=== PATIENT | male | born 1940 | race Caucasian/White ===

== ENCOUNTER 2019-02-16 18:43 | Observation (INO) ==
--- NOTE | 2019-02-16 18:57 | Emergency Department Note ---
Disposition Clinical Impression: Symptomatic bradycardia Disposition: Admitted As Inpatient Condition: Fair Forms: ED Satisfaction Letter Time of Disposition: 21:33 Arrhythmia/Palpitations HPI - General Chief Complaint: ED Arrhythmia/Palpitations Stated Complaint: BRADYCARDIA AT HOME Time Seen by Provider: 02/16/19 18:53 Source: patient Mode of arrival: ambulatory Limitations: no limitations Nursing Notes Reviewed: Yes Vital Signs Reviewed: Yes - History of Present Illness HPI Narrative: Patient was not feeling well family checked his pulse was found to be slow he is typically has a faster heart rate the [facility] family tells me that this occurs every couple months and then they make a little bit of medication changes he states his had no chest pain no chest pressure no palpitations no cough no cold or flulike symptoms no diarrhea melena hematochezia hematemesis he denies anything makes it better or anything makes it worse patient states they just has no energy know if he says when he tries not distended he denies any radiation neck and jaw or any diaphoresis all systems have been reviewed and are otherwise negative Onset (ago): Just [employer] TE[employer] Duration: intermittent Context: occurred during rest Associated symptoms: Denies: chest pain, shortness of breath, syncope, near- syncope, nausea, vomiting, anxiety, diaphoresis, cough, paresthesias, muscle cramps - Related Data Home Medications Medication Instructions Recorded Confirmed Atorvastatin [Lipitor] 40 mg PO HS 01/20/16 02/16/19 Finasteride [Proscar] 5 mg PO DAILY 01/17/17 02/16/19 Metoprolol [Lopressor] 50 mg PO BID 01/17/17 02/16/19 Oxygen 2 l NS AD 01/17/17 02/16/19 Donepezil HCl [Aricept] 5 mg PO HS 04/15/17 02/16/19 Apixaban [Eliquis] 5 mg PO BID 10/07/17 02/16/19 Furosemide [Lasix] 40 mg PO DAILY 10/07/17 02/16/19 BuPROPion XL (24 HR) [Wellbutrin 150 mg PO DAILY 10/03/18 02/16/19 Xl] Clopidogrel [Plavix] 75 mg PO DAILY 10/03/18 02/16/19 Ezetimibe [Zetia] 10 mg PO DAILY 10/03/18 02/16/19 Lisinopril [Zestril] 10 mg PO BID 10/03/18 02/16/19 Nitroglycerin [Nitrostat] 0.4 mg SL DAILY PRN 10/03/18 02/16/19 Omeprazole [PriLOSEC] 20 mg PO DAILY 10/03/18 02/16/19 Tamsulosin HCl [Flomax] 0.4 mg PO DAILY 10/03/18 02/16/19 Furosemide [Lasix] 20 mg PO QPM 10/05/18 02/16/19 Digoxin [Lanoxin] 0.125 mg PO DAILY 02/16/19 02/16/19 metFORMIN [Glucophage] 1,000 mg PO 0800 02/16/19 02/16/19 Previous Rx's Medication Instructions Recorded Diltiazem CD (24hr) [Cardizem CD] 240 mg PO DAILY 30 Days cap.er.24h 02/02/17 Allergies Allergy/AdvReac Type Severity Reaction Status Date / Time No Known Allergies Allergy Verified 10/01/18 08:47 All systems ED: reviewed and negative except as stated. Review of Systems: As Per HPI Constitutional: Denies: fever, chills Eyes: Denies: eye pain, eye discharge ENT ED: Denies: ear pain Cardiovascular: Reports: other (Slow heart rate). Denies: chest pain, palpi tations Respiratory: Denies: cough, dyspnea Gastrointestinal: Denies: abdominal pain, nausea Genitourinary: Denies: urgency, dysuria Musculoskeletal: Denies: back pain, neck pain Integumentary: Denies: rash, abrasion Neurological: Denies: headache Psychiatric: Denies: anxiety, depression Endocrine: Denies: fatigue Hematological/Lymphatic: Denies: easy bleeding Allergic/Immunologic: Denies: facial swelling Past Medical History - Past Medical History Attestation: Yes The following information was validated with the patient. Source: patient, old records reviewed, nursing notes reviewed Medical history: Reports: asthma, atrial fibrillation, CHF, COPD, coronary artery disease, CVA, dementia, diabetes, GERD, hyperlipidemia, hypertension, myocardial infarction, TIA, other Surgical history: Reports: angioplasty/stent, LE stent(s) Psychiatric history: Reports: no psych history - Social History Smoking Status: Current every day smoker Smokeless Tobacco Status: No Alcohol use: Reports: none Drug use: Reports: none Physical Exam - General Limitations: no limitations General appearance: alert, in no apparent distress - Head Head exam: atraumatic, normocephalic, normal inspection - Eye Eye exam: Present: normal appearance, PERRL, EOMI - ENT ENT exam: normal exam, normal oropharynx, mucous membranes moist - Expanded ENT Exam External ear exam: Present: normal external inspection Mouth exam: Present: normal external inspection Teeth exam: Present: normal inspection Throat exam: Present: normal inspection - Neck Neck exam: Present: normal inspection, full ROM, trachea midline - Chest Chest inspection: Present: normal inspection, symmetric chest wall rise - Respiratory Respiratory exam: Present: normal lung sounds bilaterally - Cardiovascular Cardiovascular exam: Present: regular rate, normal rhythm, normal heart sounds - Abdominal Exam Abdominal exam: Present: soft, Non-Tender, normal bowel sounds. Absent: tenderness, distention, guarding, rebound, rigidity, mass, pulsatile mass - Extremities Exam Extremities exam: Present: normal inspection, full ROM. Absent: tenderness, pedal edema - Expanded Upper Extremity Exam Shoulder exam: Present: normal inspection, full ROM Arm exam: Present: normal inspection, full ROM Elbow exam: Present: normal inspection, full ROM Forearm/Wrist exam: Present: normal inspection, full ROM Hand exam: Present: normal inspection, full ROM Neurosensory exam: Normal: radial nerve Vascular exam: Normal: capillary refill, radial pulse - Expanded Lower Extremity Exam Hip/Pelvis exam: Present: normal inspection, full ROM Upper leg exam: Present: normal inspection, full ROM Knee exam: Present: normal inspection, full ROM Lower leg exam: Present: normal inspection, full ROM Ankle exam: Present: normal inspection, full ROM Foot/toe exam: Present: normal inspection, full ROM Neurovascular/Tendon exam: Present: normal capillary refill, normal fine/light touch. Absent: motor deficit, sensory deficit, tendon deficit Gait: observed and normal - Back Exam Back exam: Present: normal inspection, full ROM. Absent: tenderness - Neurological Exam Neurological exam: Present: alert, oriented X3 - Expanded Neurological Exam Patient oriented to: Present: person, place, time Coma Scale Eye Opening: Spontaneous Coma Scale Motor Response: Obeys Commands Coma Scale Verbal Response: Oriented Coma Scale Total: 15 - Psychiatric Psychiatric exam: Present: normal affect, normal mood - Skin Skin exam: Present: warm, dry, intact, normal color Course Course Narrative: Patient was seen and evaluated patient continued to remain bradycardic while he was here in the emergency room but his blood pressure was holding 164/75 patient though just did not feel well he denied having any chest pain or chest pressure as result we will admitting old his lisinopril and his metoprolol and see if that will resolve the slow heart rate patient is agreeable family was agreeable transferred to the floor all labs have been reviewed and showing no evidence at this time of any acute ST segment elevation or ischemic or injury pattern or any elevation of the troponin we will continue to monitor Vital Signs Temperature 98.5 F 02/16/19 18:50 Pulse Rate 46 02/16/19 18:50 Respiratory Rate 21 02/16/19 18:50 Blood Pressure 163/67 02/16/19 18:50 O2 Sat by Pulse Oximetry 97 02/16/19 18:50 Temperature 98.5 F 02/16/19 18:50 Pulse Rate 48 02/16/19 19:45 Respiratory Rate 17 02/16/19 19:45 Blood Pressure 150/71 02/16/19 19:45 O2 Sat by Pulse Oximetry 95 02/16/19 19:45 Oxygen Delivery Oxygen Delivery Room Air Arrhythmia/Palpitations - MDM Narrative Medical decision making narrative: Slow heart rate Sick sinus syndrome - Differential Diagnosis Differential Diagnosis: Likely: palpitations - Medical Records Medical records reviewed: Yes I reviewed the patient's medical records. - Lab Data Lab results reviewed: Yes I reviewed the patient's lab results. Result diagrams: 02/16/19 19:10 02/16/19 19:10 Lab Results 02/16/19 02/16/19 02/16/19 Range/Units 19:10 19:10 19:10 WBC 11.6 H (4.3-11.1) K/mcL RBC 5.60 H (4.19-5.50) M/mcL Hgb 14.5 (12.9-16.9) g/dL Hct 45.1 (37.5-50.1) % MCV 80.5 L (83.0-100.0) fL MCH 25.9 L (28.0-33.3) pg MCHC 32.2 (31.6-35.5) g/dL RDW 16.3 H (11.5-14.5) % Plt Count 267 (140-400) K/mcL MPV 10.3 (9.4-12.4) fL Immature Gran % 0.4 (0-4) % Seg Neutrophils % 65.5 % Lymphocytes % 25.1 % Monocytes % 8.0 % Eosinophils % 0.8 % Basophils % 0.2 % Neutrophils # 7.6 (1.6-8.9) K/mcL Lymphocytes # 2.9 (0.6-4.6) K/mcL Monocytes # 0.9 (0.0-1.3) K/mcL Eosinophils # 0.1 (0.0-0.6) K/mcL Basophils # 0.0 (0.0-0.2) K/mcL PT 12.1 (9.4-12.1) Seconds INR 1.1 APTT 36.9 H (26.0-36.0) Seconds Sodium 138 (136-145) mEq/L Potassium 4.1 (3.5-5.1) mEq/L Chloride 103 (98-107) mEq/L Carbon Dioxide 27 (23-29) mEq/L BUN 14 (8-23) mg/dL Creatinine 1.73 H (0.70-1.30) mg/dL Est GFR ( Amer) 47 L (> 60) Est GFR (Non-Af Amer) 38 L (> 60) BUN/Creatinine Ratio 8 (6-26) Glucose 234 H (70-105) mg/dL Calculated Osmolality 294 (280-300) Calcium 8.8 (8.6-10.3) mg/dL Total Bilirubin 0.7 (0.3-1.0) mg/dL AST 12 L (13-39) Units/L ALT 16 (7-52) Units/L Alkaline Phosphatase 99 (34-104) Units/L Troponin I < 0.03 (< 0.04) ng/mL B-Natriuretic Peptide (Less than 100) pg/mL Serum Total Protein 6.0 L (6.4-8.9) g/dL Albumin 3.9 (3.5-5.7) g/dL Globulin 2.1 L (2.4-3.5) g/dL Albumin/Globulin Ratio 1.9 (1.1-2.2) TSH 2.819 (0.340-5.600) mcIU/mL Digoxin (0.8-2.0) ng/mL 02/16/19 02/16/19 Range/Units 19:10 19:10 WBC (4.3-11.1) K/mcL RBC (4.19-5.50) M/mcL Hgb (12.9-16.9) g/dL Hct (37.5-50.1) % MCV (83.0-100.0) fL MCH (28.0-33.3) pg MCHC (31.6-35.5) g/dL RDW (11.5-14.5) % Plt Count (140-400) K/mcL MPV (9.4-12.4) fL Immature Gran % (0-4) % Seg Neutrophils % % Lymphocytes % % Monocytes % % Eosinophils % % Basophils % % Neutrophils # (1.6-8.9) K/mcL Lymphocytes # (0.6-4.6) K/mcL Monocytes # (0.0-1.3) K/mcL Eosinophils # (0.0-0.6) K/mcL Basophils # (0.0-0.2) K/mcL PT (9.4-12.1) Seconds INR APTT (26.0-36.0) Seconds Sodium (136-145) mEq/L Potassium (3.5-5.1) mEq/L Chloride (98-107) mEq/L Carbon Dioxide (23-29) mEq/L BUN (8-23) mg/dL Creatinine (0.70-1.30) mg/dL Est GFR ( Amer) (> 60) Est GFR (Non-Af Amer) (> 60) BUN/Creatinine Ratio (6-26) Glucose (70-105) mg/dL Calculated Osmolality (280-300) Calcium (8.6-10.3) mg/dL Total Bilirubin (0.3-1.0) mg/dL AST (13-39) Units/L ALT (7-52) Units/L Alkaline Phosphatase (34-104) Units/L Troponin I (< 0.04) ng/mL B-Natriuretic Peptide 256 H (Less than 100) pg/mL Serum Total Protein (6.4-8.9) g/dL Albumin (3.5-5.7) g/dL Globulin (2.4-3.5) g/dL Albumin/Globulin Ratio (1.1-2.2) TSH (0.340-5.600) mcIU/mL Digoxin 2.0 (0.8-2.0) ng/mL - Radiology Data Radiology results reviewed: Yes I reviewed the patient's radiology results. ITS Impressions Chest X-Ray 02/16/19 18:53 IMPRESSION: No acute process. D/ / Castro Lovell MD / Castro Lovell MD Interpreting Provider: Castro Lovell MD - EKG Data EKG attestation: Yes I reviewed and interpreted this EKG. EKG results narrative: EKG shows sinus bradycardia prolonged HI with rate of 45 with a HI 238 QRS of 82 with a QT of 450 and an axis of 62 Critical Care Time Critical Care Time: No
[2019-02-16 19:28] LABS: Basophils % 0.2 %; Eosinophils # 0.1 K/mcL (0.0-0.6); Eosinophils % 0.8 %; Hematocrit 45.1 % (37.5-50.1); Hemoglobin 14.5 g/dL (12.9-16.9); Immature Granulocytes % 0.4 % (0-4); Lymphocytes # 2.9 K/mcL (0.6-4.6); Lymphocytes % 25.1 %; Mean Corpuscular HGB Conc 32.2 g/dL (31.6-35.5); Mean Corpuscular Hemoglobin 25.9 pg (28.0-33.3); Mean Corpuscular Volume 80.5 fL (83.0-100.0); Mean Platelet Volume 10.3 fL (9.4-12.4); Monocytes # 0.9 K/mcL (0.0-1.3); Neutrophils # 7.6 K/mcL (1.6-8.9); Platelet Count 267 K/mcL (140-400); Red Cell Distribution Width 16.3 % (11.5-14.5); Segmented Neutrophils % 65.5 %
[2019-02-16 19:36] LABS: INR 1.1; Prothrombin Time 12.1 Seconds (9.4-12.1)
[2019-02-16 19:39] LABS: Activated Partial Thrombo Time 36.9 Seconds (26.0-36.0)
[2019-02-16 19:44] LABS: Alanine Aminotransferase 16 Units/L (7-52); Albumin 3.9 g/dL (3.5-5.7); Albumin/Globulin Ratio 1.9 (1.1-2.2); Alkaline Phosphatase 99 Units/L (34-104); Aspartate Amino Transferase 12 Units/L (13-39); BUN/Creatinine Ratio 8 (6-26); Bilirubin,Total 0.7 mg/dL (0.3-1.0); Blood Urea Nitrogen 14 mg/dL (8-23); Calcium 8.8 mg/dL (8.6-10.3); Carbon Dioxide 27 mEq/L (23-29); Chloride 103 mEq/L (98-107); Globulin 2.1 g/dL (2.4-3.5); Glucose 234 mg/dL (70-105); Osmolality,Calculated 294 (280-300); Potassium 4.1 mEq/L (3.5-5.1); Sodium 138 mEq/L (136-145); eGFR For Non-African Americans 38 (> 60)
[2019-02-16 19:47] LABS: Troponin I < 0.03 ng/mL (< 0.04)
[2019-02-16 20:01] LABS: Thyroid Stimulating Hormone 2.819 mcIU/mL (0.340-5.600)
[2019-02-16] MEDS ORDERED: D5% in Water 1,000 ML IVC PRN (22:05)
[2019-02-16] MEDS ORDERED: NON-FORMULARY MEDICATION 1 EACH EACH (Oxygen [Oxygen] 2 L) NS SCH (22:05)
[2019-02-16] MEDS ORDERED: Naloxone 0.4 MG/ML INJ IVP PRN (22:05)
[2019-02-16] MEDS ORDERED: *HR* Dextrose 50 % in Water (Vial) 50 ML VIAL IVP PRN (22:05)
[2019-02-16] MEDS ORDERED: Dextrose Gel 15 GM/37.5 ML TUBE PO PRN ×2 (22:05)
[2019-02-16] MEDS: Nicotine 21 MG PATCH.TD24 TD SCH (23:11)
[2019-02-17 07:26] LABS: BUN/Creatinine Ratio 11 (6-26); Blood Urea Nitrogen 14 mg/dL (8-23); Calcium 8.5 mg/dL (8.6-10.3); Carbon Dioxide 27 mEq/L (23-29); Chloride 105 mEq/L (98-107); Glucose 233 mg/dL (70-105); Osmolality,Calculated 294 (280-300); Potassium 3.9 mEq/L (3.5-5.1); Sodium 138 mEq/L (136-145); eGFR For Non-African Americans 53 (> 60)
[2019-02-17] MEDS ORDERED: *HR* Metformin 500 MG TABLET PO SCH (08:00)
[2019-02-17] MEDS: Insulin LISPRO 300 UNITS/3 ML VIAL SQ SCH ×2 (08:04→11:44)
[2019-02-17] MEDS: Nicotine 21 MG PATCH.TD24 TD SCH (08:11)
[2019-02-17] MEDS ORDERED: ZETIA 10MG PO SCH (09:00)
[2019-02-17] MEDS ORDERED: Apixaban 5 MG TABLET PO SCH (09:00)
[2019-02-17] MEDS ORDERED: Diltiazem CD (24hr) 240 MG CAPSULE PO SCH (09:00)
[2019-02-17] MEDS ORDERED: BuPROPion XL (24 HR) 150 MG TABLET PO SCH (09:00)
[2019-02-17] MEDS ORDERED: Finasteride 5 MG TABLET PO SCH (09:00)
[2019-02-17] MEDS ORDERED: Furosemide 40 MG TABLET PO SCH (09:00)
[2019-02-17] MEDS ORDERED: *HR* Digoxin 0.125 MG TABLET PO SCH (09:00)
[2019-02-17 10:37] VITALS: BP 139/63
--- NOTE | 2019-02-17 12:47 | Internal Med History&Physical ---
Date of Encounter: 02/17/19 Time of Encounter: 12:20 Assessment and Plan (1) Symptomatic bradycardia Current visit: Yes Status: Acute He has been admitted to [facility]. Beta eder will be held. Internal Medicine - H&P: HPI Chief complaint: Bradycardia Admitted From: Emergency Dept Plans for Post Hospital Care: Home History of present illness: Mr. Hercules is a 78 year old male who came to emergency room stating he felt weak at home. His daughter checked heart rate and found it to be approximately 35/m. Patient was brought to emergency room and admitted to [facility] for ongoing care needs. He is on metoprolol 50 mg twice a day for history of hypertension and atrial fibrillation. Cardiovascular history is pertinent otherwise for known ASHD. He states he had an [place] in the past but does not recall the date. He has had multiple cardiac stents placed with the most recent ones approximately 2005. He does not recall the date of his last heart cath. He denies DVT or pulmonary embolus. He had an echocardiogram 08/04/2018 which showed LVEF of 60-65%. The interventricular septum and posterior wall thickness measurements were elevated at 1.30 cm each. E/A ratio was 1.1. There was reported mild sclerotic aortic valve leaflets. No evidence of pulmonary hypertension was seen. He had Regadenoson nuclear stress 01/24/2016 which showed no evidence of ischemia or infarct. The LVEF was 66%. He states he feels back to his baseline now and wishes to be discharged home. Past Med Surg Social Fam HX - Past Medical History Medical history: asthma, atrial fibrillation, CHF, COPD, coronary artery disease, CVA, dementia, diabetes, GERD, hyperlipidemia, hypertension, myocardial infarction, TIA, other Additional medical history: BPH,low back pain secondary to degenerative disc disease,history of stroke with left sided weakness,adenomatous colon polyps,depression,obesity,tachycardia Psychiatric history: no psych history - Past Surgical History Surgical History: angioplasty/stent, knee replacement, LE stent(s), orthopedic, other Additional surgical history: cardiac stenting,right leg broken-steel luke inserted,heart cath,right total knee replacement,right knee arthroscopy removal of adhesions - Social History Smoking Status: Current every day smoker Packs per day: 0.75 Smokeless Tobacco Status: No Alcohol use: none Drug use: none - Family History Sister Living Status: Hx Family Cancer: Yes Hx Family Neurologic Disorders: Yes Father Living Status: Hx Family Cardiac Disorders: Yes ([place]) Hx Family Cancer: Yes (prostate/stomach) Internal Medicine - H&P: Meds Atorvastatin [Lipitor] 40 mg PO HS 01/20/16 [History] Finasteride [Proscar] 5 mg PO DAILY 01/17/17 [History] Metoprolol [Lopressor] 50 mg PO BID 01/17/17 [History] Oxygen 2 l NS AD 01/17/17 [History] Diltiazem CD (24hr) [Cardizem CD] 240 mg PO DAILY 30 Days cap.er.24h 02/02/17 [Rx] Donepezil HCl [Aricept] 5 mg PO HS 04/15/17 [History] Apixaban [Eliquis] 5 mg PO BID 10/07/17 [History] Furosemide [Lasix] 40 mg PO DAILY 10/07/17 [History] BuPROPion XL (24 HR) [Wellbutrin Xl] 150 mg PO DAILY 10/03/18 [History] Clopidogrel [Plavix] 75 mg PO DAILY 10/03/18 [History] Ezetimibe [Zetia] 10 mg PO DAILY 10/03/18 [History] Lisinopril [Zestril] 10 mg PO BID 10/03/18 [History] Nitroglycerin [Nitrostat] 0.4 mg SL DAILY PRN 10/03/18 [History] Omeprazole [PriLOSEC] 20 mg PO DAILY 10/03/18 [History] Tamsulosin HCl [Flomax] 0.4 mg PO DAILY 10/03/18 [History] Furosemide [Lasix] 20 mg PO QPM 10/05/18 [History] Digoxin [Lanoxin] 0.125 mg PO DAILY 02/16/19 [History] metFORMIN [Glucophage] 1,000 mg PO 0800 02/16/19 [History] Allergy/AdvReac Type Severity Reaction Status Date / Time No Known Allergies Allergy Verified 10/01/18 08:47 All Systems PM: A 10-system review of systems was performed and is negative for pertinent findings except as documented above in the HPI. Review of systems: Gen.: His weight has decreased from 105.37 kg on 10/17/2016 to 98.883 kg on admission now. Cardiovascular: As per history of present illness Respiratory: He states he smoked from age [age] up to 1 pack per day. He had pulmonary function test done 07/06/2016 which showed FVC 66%, FEV1 62%, and FEV1/FVC ratio of 0.68. His MVV was 45% predicted. Residual volume was 133% predicted. DLCO was 59 % . He reports using home oxygen. GI: He has GERD but denies disorders of his liver gallbladder or exocrine pancreas. : He denies hematuria dysuria or kidney stones. He denies chronic kidney disease. Neurologic: He denies large distribution strokes or seizures. Endocrine: He was diagnosed with DM 2 approximately 2000. He has hyperlipidemia and claims he has a thyroid nodule. TSH was normal at 2.819 on 02/16/2019. Hematology/oncology: He denies blood disorders cancers or anemia. B12 level was low at 219 on 10/08/2018. Psychiatric: He has depression but denies anxiety or other mental health issues Musk skeletal: He has DJD and reports right knee replacement was done September 2018. He had injury to his right leg 1974 requiring luke placement in his right femur. He denies gout or other bone joint or muscle disorders. - Constitutional Vitals: Temp Pulse Resp BP Pulse Ox 97.7 F 54 18 139/63 95 02/17/19 10:33 02/17/19 10:33 02/17/19 10:33 02/17/19 10:33 02/17/19 10:33 Exam: Gen.: He is a well-developed well-nourished male sitting on the side of bed who appears in no acute distress HEENT: Head is atraumatic and normocephalic. Eyes: EOMI. There is no scleral icterus. Mouth: Mucosa is moist. Neck: Supple and nontender. There is no thyromegaly or adenopathy noted. Heart: Regular with rate 60/m. No murmurs or gallops are heard. Lungs: No wheezes or crackles are heard. Abdomen: Soft and nontender. No masses or guarding are noted. Extremities: He has trace to 1+ edema the dorsum of feet and lower legs bilaterally. Dorsalis pedis and posterior tibial pulses are trace palpable. Neurologic: Mental status: He is talkative and a fair historian. He does not remember some details of his history. Cranial nerves: Smile is symmetric. Forehead wrinkles bilaterally. Tongue protrudes midline. EOMI. Motor: There is no pronator drift. Cerebellar: Finger to nose is intact bilaterally. Skin: Warm and dry Internal Med - H&P Results - Labs CBC & Chem 7: 02/16/19 19:10 02/17/19 07:04 Labs: Short CBC 02/16/19 Range/Units 19:10 WBC 11.6 H (4.3-11.1) K/mcL Hgb 14.5 (12.9-16.9) g/dL Hct 45.1 (37.5-50.1) % Plt Count 267 (140-400) K/mcL Neutrophils # 7.6 (1.6-8.9) K/mcL BMP 02/16/19 02/17/19 19:10 07:04 Sodium 138 138 Potassium 4.1 3.9 Chloride 103 105 Carbon Dioxide 27 27 BUN 14 14 Creatinine 1.73 H 1.31 H Glucose 234 H 233 H Calcium 8.8 8.5 L Cardiac Enzymes 02/16/19 02/17/19 02/17/19 Range/Units 19:10 01:20 07:04 Troponin I < 0.03 < 0.03 < 0.03 (< 0.04) ng/mL Liver Function 02/16/19 Range/Units 19:10 Total Bilirubin 0.7 (0.3-1.0) mg/dL AST 12 L (13-39) Units/L ALT 16 (7-52) Units/L Alkaline Phosphatase 99 (34-104) Units/L Albumin 3.9 (3.5-5.7) g/dL - Impressions ITS Impressions Chest X-Ray 02/16/19 18:53 IMPRESSION: No acute process. D/ / Castro Lovell MD / Castro Lovell MD Interpreting Provider: Castro Lovell MD
--- NOTE | 2019-02-17 12:54 | Discharge Summary ---
Date of Encounter: 02/17/19 Time of Encounter: 11:20 - Discharge Diagnosis (1) Symptomatic bradycardia Priority: Primary Status: Acute Hospital course: Mr. Hercules is a 78 year old male who came to emergency room stating he felt weak at home. His daughter checked heart rate and found it to be approximately 35/m. Patient was brought to emergency room and admitted to [facility] floor for ongoing care needs. Initial orders were written by the emergency room physician. I saw him on February 17 and performed a history physical and discharge. Metoprolol was held and heart rate gradually marisol to acceptable level. He was asymptomatic when I saw him on February 17 and wished to be discharged home. He will restart metoprolol at a dose of 25 mg twice a day and monitor heart rate and blood pressure. Digoxin level returned in therapeutic range at 2.0. Creatinine had decreased to 1.31 on day of discharge. His PCP can continue to monitor. Review of archived labs shows low iron and B12 levels September 2018. His PCP can follow up on these. He will follow with his PCP Dr. Solano within 1 week. - Time Spent with Patient Total time spent providing and/or coordinating discharge services: - Discharge Medications Prescriptions: Continue Atorvastatin [Lipitor] 40 mg PO HS Oxygen 2 l NS AD Finasteride [Proscar] 5 mg PO DAILY Diltiazem CD (24hr) [Cardizem CD] 240 mg PO DAILY 30 Days cap.er.24h Donepezil HCl [Aricept] 5 mg PO HS Apixaban [Eliquis] 5 mg PO BID Furosemide [Lasix] 40 mg PO DAILY Tamsulosin HCl [Flomax] 0.4 mg PO DAILY Omeprazole [PriLOSEC] 20 mg PO DAILY Ezetimibe [Zetia] 10 mg PO DAILY Clopidogrel [Plavix] 75 mg PO DAILY Lisinopril [Zestril] 10 mg PO BID BuPROPion XL (24 HR) [Wellbutrin Xl] 150 mg PO DAILY Nitroglycerin [Nitrostat] 0.4 mg SL DAILY PRN PRN Reason: Chest Pain Furosemide [Lasix] 20 mg PO QPM Digoxin [Lanoxin] 0.125 mg PO DAILY metFORMIN [Glucophage] 1,000 mg PO 0800 Changed Metoprolol [Lopressor] 25 mg PO BID #0 Home Medications: Atorvastatin [Lipitor] 40 mg PO HS 01/20/16 [History] Finasteride [Proscar] 5 mg PO DAILY 01/17/17 [History] Oxygen 2 l NS AD 01/17/17 [History] Diltiazem CD (24hr) [Cardizem CD] 240 mg PO DAILY 30 Days cap.er.24h 02/02/17 [Rx] Donepezil HCl [Aricept] 5 mg PO HS 04/15/17 [History] Apixaban [Eliquis] 5 mg PO BID 10/07/17 [History] Furosemide [Lasix] 40 mg PO DAILY 10/07/17 [History] BuPROPion XL (24 HR) [Wellbutrin Xl] 150 mg PO DAILY 10/03/18 [History] Clopidogrel [Plavix] 75 mg PO DAILY 10/03/18 [History] Ezetimibe [Zetia] 10 mg PO DAILY 10/03/18 [History] Lisinopril [Zestril] 10 mg PO BID 10/03/18 [History] Nitroglycerin [Nitrostat] 0.4 mg SL DAILY PRN 10/03/18 [History] Omeprazole [PriLOSEC] 20 mg PO DAILY 10/03/18 [History] Tamsulosin HCl [Flomax] 0.4 mg PO DAILY 10/03/18 [History] Furosemide [Lasix] 20 mg PO QPM 10/05/18 [History] Digoxin [Lanoxin] 0.125 mg PO DAILY 02/16/19 [History] metFORMIN [Glucophage] 1,000 mg PO 0800 02/16/19 [History] Metoprolol [Lopressor] 25 mg PO BID #0 02/17/19 [Rx] Allergies/Adverse Reactions: Allergy/AdvReac Type Severity Reaction Status Date / Time No Known Allergies Allergy Verified 10/01/18 08:47 Date of admission: 02/16/19 21:40 Primary care physician: Sharad Solano MD - Constitutional Vitals: Temp Pulse Resp BP Pulse Ox 97.7 F 54 18 139/63 95 02/17/19 10:33 02/17/19 10:33 02/17/19 10:33 02/17/19 10:33 02/17/19 10:33 - Patient Status Disposition: Home, Self-Care Condition: Fair - Discharge Instructions Follow Up With: Sharad Solano MD [Primary Care Provider] - 1 week - Diet and Activity Activity: resume usual activities as tolerated Diet: advance to your usual diet
--- NOTE | 2019-02-17 16:18 | Electrocardiograph Report ---
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
[2019-02-17] MEDS ORDERED: Furosemide 20 MG TABLET PO SCH (18:00)
== END 2019-02-17 13:56 | disposition home or self-care (01) ==
LOC: EMEROOPIK 18:43 → INPPIK 18:43
PROVIDERS: ADMIT Internal Medicine; ATTEND Internal Medicine

== ENCOUNTER 2020-09-09 12:52 | Inpatient (IN) ==
[2020-09-09] MEDS ORDERED: Nitroglycerin 0.4 MG TAB.SUBL SL PRN (14:29)
[2020-09-09] MEDS ORDERED: CEFAZOLIN 2000 MG IV SCH (14:30)
[2020-09-09] MEDS: *HR* Metformin 500 MG TABLET PO SCH (16:11)
[2020-09-09] MEDS: ceFAZolin 2,000 MG in 0.9 % Sodium Chloride 100 ML IVPB SCH (16:11)
[2020-09-09] MEDS: Apixaban 5 MG TABLET PO SCH (20:38)
[2020-09-09] MEDS: lisinopriL 10 MG TABLET PO SCH (20:39)
[2020-09-10] MEDS: ceFAZolin 2,000 MG in 0.9 % Sodium Chloride 100 ML IVPB SCH ×3 (01:02→17:25)
[2020-09-10] MEDS: traZODone 50 MG TABLET PO PRN (01:59)
[2020-09-10 07:43] LABS: BUN/Creatinine Ratio 12 (6-26); Blood Urea Nitrogen 12 mg/dL (8-23); Calcium 8.4 mg/dL (8.6-10.3); Carbon Dioxide 26 mEq/L (23-29); Chloride 102 mEq/L (98-107); Glucose 113 mg/dL (70-105); Osmolality,Calculated 289 (280-300); Potassium 3.3 mEq/L (3.5-5.1); Sodium 139 mEq/L (136-145); eGFR For African Americans > 60 (> 60); eGFR For Non-African Americans > 60 (> 60)
[2020-09-10 07:44] LABS: Hematocrit 28.6 % (37.5-50.1); Hemoglobin 8.8 g/dL (12.9-16.9); Mean Corpuscular HGB Conc 30.8 g/dL (31.6-35.5); Mean Corpuscular Hemoglobin 21.8 pg (28.0-33.3); Mean Corpuscular Volume 70.8 fL (83.0-100.0); Mean Platelet Volume 9.4 fL (9.4-12.4); Platelet Count 332 K/mcL (140-400); Red Blood Count 4.04 M/mcL (4.19-5.50); White Blood Count 10.1 K/mcL (4.3-11.1)
[2020-09-10] MEDS: Apixaban 5 MG TABLET PO SCH ×2 (09:55→20:30)
[2020-09-10] MEDS: Furosemide 40 MG TABLET PO SCH (09:55)
[2020-09-10] MEDS: lisinopriL 10 MG TABLET PO SCH ×2 (09:56→20:31)
[2020-09-10] MEDS: *HR* Metformin 500 MG TABLET PO SCH ×2 (09:56→17:26)
[2020-09-10] MEDS: BuPROPion XL (24 HR) 150 MG TABLET PO SCH (09:56)
[2020-09-10] MEDS: DilTIAZem CD (24hr) 120 MG CAP.ER.24H PO SCH (09:56)
[2020-09-11] MEDS: ceFAZolin 2,000 MG in 0.9 % Sodium Chloride 100 ML IVPB SCH ×3 (00:01→16:48)
[2020-09-11] MEDS: *HR* Metformin 500 MG TABLET PO SCH ×2 (09:54→16:47)
[2020-09-11] MEDS: lisinopriL 10 MG TABLET PO SCH ×2 (09:54→20:30)
[2020-09-11] MEDS: BuPROPion XL (24 HR) 150 MG TABLET PO SCH (09:54)
[2020-09-11] MEDS: Apixaban 5 MG TABLET PO SCH ×2 (09:54→20:29)
[2020-09-11] MEDS: Furosemide 40 MG TABLET PO SCH (09:54)
[2020-09-11] MEDS: DilTIAZem CD (24hr) 120 MG CAP.ER.24H PO SCH (09:54)
[2020-09-12] MEDS: ceFAZolin 2,000 MG in 0.9 % Sodium Chloride 100 ML IVPB SCH ×3 (00:45→16:10)
[2020-09-12] MEDS: lisinopriL 10 MG TABLET PO SCH ×2 (07:56→21:23)
[2020-09-12] MEDS: BuPROPion XL (24 HR) 150 MG TABLET PO SCH (07:56)
[2020-09-12] MEDS: Furosemide 40 MG TABLET PO SCH (07:56)
[2020-09-12] MEDS: Apixaban 5 MG TABLET PO SCH ×2 (07:56→21:23)
[2020-09-12] MEDS: DilTIAZem CD (24hr) 120 MG CAP.ER.24H PO SCH (07:56)
[2020-09-12] MEDS: *HR* Metformin 500 MG TABLET PO SCH ×2 (07:56→16:10)
[2020-09-12] MEDS: Nicotine 14 MG PATCH.TD24 TD SCH (16:09)
[2020-09-13] MEDS: ceFAZolin 2,000 MG in 0.9 % Sodium Chloride 100 ML IVPB SCH ×3 (00:09→16:11)
[2020-09-13 07:22] LABS: Hematocrit 30.2 % (37.5-50.1); Hemoglobin 9.1 g/dL (12.9-16.9); Mean Corpuscular HGB Conc 30.1 g/dL (31.6-35.5); Mean Corpuscular Hemoglobin 21.4 pg (28.0-33.3); Mean Corpuscular Volume 71.1 fL (83.0-100.0); Mean Platelet Volume 9.2 fL (9.4-12.4); Platelet Count 398 K/mcL (140-400); Red Blood Count 4.25 M/mcL (4.19-5.50); Red Cell Distribution Width 18.8 % (11.5-14.5); White Blood Count 8.6 K/mcL (4.3-11.1)
[2020-09-13 07:30] LABS: BUN/Creatinine Ratio 15 (6-26); Blood Urea Nitrogen 15 mg/dL (8-23); Calcium 8.4 mg/dL (8.6-10.3); Carbon Dioxide 26 mEq/L (23-29); Chloride 103 mEq/L (98-107); Glucose 113 mg/dL (70-105); Osmolality,Calculated 290 (280-300); Potassium 3.4 mEq/L (3.5-5.1); Sodium 139 mEq/L (136-145); eGFR For African Americans > 60 (> 60); eGFR For Non-African Americans > 60 (> 60)
[2020-09-13] MEDS: Nicotine 14 MG PATCH.TD24 TD SCH (08:27)
[2020-09-13] MEDS: *HR* Metformin 500 MG TABLET PO SCH ×2 (08:28→16:11)
[2020-09-13] MEDS: Furosemide 40 MG TABLET PO SCH (08:28)
[2020-09-13] MEDS: Apixaban 5 MG TABLET PO SCH ×2 (08:28→20:42)
[2020-09-13] MEDS: BuPROPion XL (24 HR) 150 MG TABLET PO SCH (08:28)
[2020-09-13] MEDS: DilTIAZem CD (24hr) 120 MG CAP.ER.24H PO SCH (08:28)
[2020-09-13] MEDS: lisinopriL 10 MG TABLET PO SCH ×2 (08:28→20:42)
[2020-09-13] MEDS: Insulin LISPRO 300 UNITS/3 ML VIAL SQ SCH ×3 (13:38→20:43)
[2020-09-13] MEDS ORDERED: *HR* Dextrose 50 % in Water (Vial) 50 ML VIAL IVP PRN (15:13)
[2020-09-13] MEDS ORDERED: D5% in Water 1,000 ML IVC PRN (15:13)
[2020-09-13] MEDS ORDERED: Dextrose Gel 15 GM/37.5 ML TUBE PO PRN ×2 (15:13)
[2020-09-14] MEDS: ceFAZolin 2,000 MG in 0.9 % Sodium Chloride 100 ML IVPB SCH ×3 (00:30→17:33)
[2020-09-14] MEDS: DilTIAZem CD (24hr) 120 MG CAP.ER.24H PO SCH (09:37)
[2020-09-14] MEDS: Nicotine 14 MG PATCH.TD24 TD SCH (09:37)
[2020-09-14] MEDS: *HR* Metformin 500 MG TABLET PO SCH ×2 (09:37→16:12)
[2020-09-14] MEDS: Furosemide 40 MG TABLET PO SCH (09:37)
[2020-09-14] MEDS: Apixaban 5 MG TABLET PO SCH ×2 (09:37→20:54)
[2020-09-14] MEDS: BuPROPion XL (24 HR) 150 MG TABLET PO SCH (09:37)
[2020-09-14] MEDS: lisinopriL 10 MG TABLET PO SCH ×2 (09:37→20:54)
[2020-09-14] MEDS: Insulin LISPRO 300 UNITS/3 ML VIAL SQ SCH ×4 (11:12→20:54)
[2020-09-15] MEDS: ceFAZolin 2,000 MG in 0.9 % Sodium Chloride 100 ML IVPB SCH ×4 (00:40→23:47)
[2020-09-15] MEDS: Insulin LISPRO 300 UNITS/3 ML VIAL SQ SCH ×4 (08:22→20:06)
[2020-09-15] MEDS: Apixaban 5 MG TABLET PO SCH ×2 (08:37→20:08)
[2020-09-15] MEDS: *HR* Metformin 500 MG TABLET PO SCH ×2 (08:37→18:20)
[2020-09-15] MEDS: Furosemide 40 MG TABLET PO SCH (08:38)
[2020-09-15] MEDS: DilTIAZem CD (24hr) 120 MG CAP.ER.24H PO SCH (08:38)
[2020-09-15] MEDS: BuPROPion XL (24 HR) 150 MG TABLET PO SCH (08:38)
[2020-09-15] MEDS: lisinopriL 10 MG TABLET PO SCH ×2 (08:38→20:08)
[2020-09-15] MEDS: Nicotine 14 MG PATCH.TD24 TD SCH (08:39)
[2020-09-15] MEDS ORDERED: Ondansetron ODT 4 MG TAB.RAPDIS SL PRN (09:06)
[2020-09-15] MEDS ORDERED: cloNIDine HCL 0.1 MG TABLET PO PRN (09:10)
[2020-09-15 10:43] LABS: Basophils % 0.2 %; Eosinophils # 0.2 K/mcL (0.0-0.6); Eosinophils % 1.3 %; Hematocrit 29.9 % (37.5-50.1); Hemoglobin 9.2 g/dL (12.9-16.9); Immature Granulocytes % 0.4 % (0-4); Lymphocytes # 1.8 K/mcL (0.6-4.6); Mean Corpuscular HGB Conc 30.8 g/dL (31.6-35.5); Mean Corpuscular Hemoglobin 21.7 pg (28.0-33.3); Mean Corpuscular Volume 70.7 fL (83.0-100.0); Mean Platelet Volume 8.7 fL (9.4-12.4); Monocytes # 1.4 K/mcL (0.0-1.3); Monocytes % 10.4 %; Neutrophils # 10.1 K/mcL (1.6-8.9); Platelet Count 453 K/mcL (140-400); Red Blood Count 4.23 M/mcL (4.19-5.50); Red Cell Distribution Width 18.8 % (11.5-14.5); Segmented Neutrophils % 74.7 %; White Blood Count 13.5 K/mcL (4.3-11.1)
[2020-09-15 10:53] LABS: BUN/Creatinine Ratio 16 (6-26); Blood Urea Nitrogen 15 mg/dL (8-23); Calcium 8.4 mg/dL (8.6-10.3); Carbon Dioxide 25 mEq/L (23-29); Chloride 103 mEq/L (98-107); Glucose 106 mg/dL (70-105); Osmolality,Calculated 285 (280-300); Potassium 3.7 mEq/L (3.5-5.1); Sodium 137 mEq/L (136-145); eGFR For African Americans > 60 (> 60); eGFR For Non-African Americans > 60 (> 60)
[2020-09-15 13:44] LABS: Bilirubin,Urine Small (Negative); Blood,Urine Large (Negative); Clarity,Urine Cloudy (Clear); Color,Urine Red (Yellow); Glucose,Urine (UA) Normal (Normal); Ketones,Urine Negative (Negative); Leukocyte Esterase,Urine Negative (Negative); Nitrite,Urine Negative (Negative); Protein,Urine 100 mg/dL (Neg-Trace); Specific Gravity,Urine 1.025 (1.010-1.025); Urobilinogen,Urine Normal (Normal)
[2020-09-15 13:54] LABS: Bacteria,Urine Few per hpf (None-Few); RBC,Urine TNTC per hpf (0-3); Squamous Epithelial Cell,Urine Few per hpf (None-Few); WBC,Urine 0-3 per hpf (0-3)
[2020-09-16] MEDS: ceFAZolin 2,000 MG in 0.9 % Sodium Chloride 100 ML IVPB SCH ×2 (07:31→15:45)
[2020-09-16] MEDS: BuPROPion XL (24 HR) 150 MG TABLET PO SCH (07:32)
[2020-09-16] MEDS: *HR* Metformin 500 MG TABLET PO SCH ×2 (07:33→15:45)
[2020-09-16] MEDS: lisinopriL 10 MG TABLET PO SCH ×2 (07:35→19:59)
[2020-09-16] MEDS: Nicotine 14 MG PATCH.TD24 TD SCH (07:35)
[2020-09-16] MEDS: Apixaban 5 MG TABLET PO SCH ×2 (07:35→20:00)
[2020-09-16] MEDS: DilTIAZem CD (24hr) 120 MG CAP.ER.24H PO SCH (07:35)
[2020-09-16] MEDS: Furosemide 40 MG TABLET PO SCH (07:35)
[2020-09-16] MEDS: Insulin LISPRO 300 UNITS/3 ML VIAL SQ SCH ×4 (08:58→20:41)
[2020-09-17] MEDS: ceFAZolin 2,000 MG in 0.9 % Sodium Chloride 100 ML IVPB SCH ×4 (00:01→23:36)
[2020-09-17 05:55] LABS: Basophils % 0.2 %; Eosinophils # 0.4 K/mcL (0.0-0.6); Eosinophils % 3.3 %; Hematocrit 28.3 % (37.5-50.1); Hemoglobin 8.6 g/dL (12.9-16.9); Immature Granulocytes % 0.4 % (0-4); Lymphocytes # 1.8 K/mcL (0.6-4.6); Lymphocytes % 16.8 %; Mean Corpuscular HGB Conc 30.4 g/dL (31.6-35.5); Mean Corpuscular Hemoglobin 21.8 pg (28.0-33.3); Mean Corpuscular Volume 71.6 fL (83.0-100.0); Mean Platelet Volume 9.1 fL (9.4-12.4); Monocytes # 1.2 K/mcL (0.0-1.3); Monocytes % 11.3 %; Neutrophils # 7.3 K/mcL (1.6-8.9); Platelet Count 493 K/mcL (140-400); Red Blood Count 3.95 M/mcL (4.19-5.50); Red Cell Distribution Width 19.3 % (11.5-14.5); White Blood Count 10.7 K/mcL (4.3-11.1)
[2020-09-17 06:14] LABS: BUN/Creatinine Ratio 15 (6-26); Blood Urea Nitrogen 14 mg/dL (8-23); Calcium 8.5 mg/dL (8.6-10.3); Carbon Dioxide 29 mEq/L (23-29); Chloride 101 mEq/L (98-107); Glucose 103 mg/dL (70-105); Osmolality,Calculated 283 (280-300); Potassium 3.5 mEq/L (3.5-5.1); Sodium 136 mEq/L (136-145); eGFR For African Americans > 60 (> 60); eGFR For Non-African Americans > 60 (> 60)
[2020-09-17] MEDS: Insulin LISPRO 300 UNITS/3 ML VIAL SQ SCH ×4 (07:42→21:32)
[2020-09-17] MEDS: Furosemide 40 MG TABLET PO SCH (08:05)
[2020-09-17] MEDS: *HR* Metformin 500 MG TABLET PO SCH ×2 (08:05→16:02)
[2020-09-17] MEDS: lisinopriL 10 MG TABLET PO SCH ×2 (08:05→21:31)
[2020-09-17] MEDS: BuPROPion XL (24 HR) 150 MG TABLET PO SCH (08:05)
[2020-09-17] MEDS: Apixaban 5 MG TABLET PO SCH ×2 (08:05→21:31)
[2020-09-17] MEDS: Nicotine 14 MG PATCH.TD24 TD SCH (08:05)
[2020-09-17] MEDS: DilTIAZem CD (24hr) 120 MG CAP.ER.24H PO SCH (08:05)
[2020-09-18] MEDS: Insulin LISPRO 300 UNITS/3 ML VIAL SQ SCH ×4 (08:35→20:01)
[2020-09-18] MEDS: ceFAZolin 2,000 MG in 0.9 % Sodium Chloride 100 ML IVPB SCH ×3 (09:43→23:27)
[2020-09-18] MEDS: Nicotine 14 MG PATCH.TD24 TD SCH (09:43)
[2020-09-18] MEDS: lisinopriL 10 MG TABLET PO SCH ×2 (09:44→20:50)
[2020-09-18] MEDS: *HR* Metformin 500 MG TABLET PO SCH ×2 (09:45→16:18)
[2020-09-18] MEDS: Apixaban 5 MG TABLET PO SCH ×2 (09:45→20:49)
[2020-09-18] MEDS: DilTIAZem CD (24hr) 120 MG CAP.ER.24H PO SCH (09:46)
[2020-09-18] MEDS: Furosemide 40 MG TABLET PO SCH (09:46)
[2020-09-18] MEDS: BuPROPion XL (24 HR) 150 MG TABLET PO SCH (09:47)
[2020-09-18] MEDS: haloperidoL 1 MG TABLET PO PRN (14:23)
[2020-09-18] MEDS: traZODone 50 MG TABLET PO PRN (23:27)
[2020-09-19] MEDS: Insulin LISPRO 300 UNITS/3 ML VIAL SQ SCH ×4 (07:17→20:21)
[2020-09-19 08:04] LABS: Basophils % 0.3 %; Eosinophils # 0.3 K/mcL (0.0-0.6); Eosinophils % 2.3 %; Hematocrit 30.3 % (37.5-50.1); Hemoglobin 9.1 g/dL (12.9-16.9); Immature Granulocytes % 0.3 % (0-4); Lymphocytes % 16.9 %; Mean Corpuscular Hemoglobin 21.6 pg (28.0-33.3); Mean Corpuscular Volume 71.8 fL (83.0-100.0); Mean Platelet Volume 8.9 fL (9.4-12.4); Monocytes # 1.1 K/mcL (0.0-1.3); Monocytes % 9.4 %; Neutrophils # 8.1 K/mcL (1.6-8.9); Platelet Count 674 K/mcL (140-400); Red Blood Count 4.22 M/mcL (4.19-5.50); Red Cell Distribution Width 19.6 % (11.5-14.5); Segmented Neutrophils % 70.8 %; White Blood Count 11.5 K/mcL (4.3-11.1)
[2020-09-19 08:06] LABS: Lymphocytes # 1.9 K/mcL (0.6-4.6)
[2020-09-19 08:26] LABS: BUN/Creatinine Ratio 13 (6-26); Blood Urea Nitrogen 12 mg/dL (8-23); Calcium 8.7 mg/dL (8.6-10.3); Carbon Dioxide 28 mEq/L (23-29); Chloride 100 mEq/L (98-107); Glucose 107 mg/dL (70-105); Osmolality,Calculated 286 (280-300); Potassium 3.4 mEq/L (3.5-5.1); Sodium 138 mEq/L (136-145); eGFR For African Americans > 60 (> 60); eGFR For Non-African Americans > 60 (> 60)
[2020-09-19] MEDS: Nicotine 14 MG PATCH.TD24 TD SCH (09:10)
[2020-09-19] MEDS: ceFAZolin 2,000 MG in 0.9 % Sodium Chloride 100 ML IVPB SCH ×2 (09:10→16:00)
[2020-09-19] MEDS: *HR* Metformin 500 MG TABLET PO SCH ×2 (09:10→15:59)
[2020-09-19] MEDS: BuPROPion XL (24 HR) 150 MG TABLET PO SCH (09:10)
[2020-09-19] MEDS: DilTIAZem CD (24hr) 120 MG CAP.ER.24H PO SCH (09:11)
[2020-09-19] MEDS: lisinopriL 10 MG TABLET PO SCH ×2 (09:11→20:31)
[2020-09-19] MEDS: Furosemide 40 MG TABLET PO SCH (09:11)
[2020-09-19] MEDS: haloperidoL 1 MG TABLET PO PRN (09:12)
[2020-09-19] MEDS: Apixaban 5 MG TABLET PO SCH (20:31)
[2020-09-19] MEDS: traZODone 50 MG TABLET PO PRN (21:43)
[2020-09-20] MEDS: ceFAZolin 2,000 MG in 0.9 % Sodium Chloride 100 ML IVPB SCH ×3 (00:20→16:02)
[2020-09-20] MEDS: Insulin LISPRO 300 UNITS/3 ML VIAL SQ SCH ×4 (08:21→19:46)
[2020-09-20] MEDS: Nicotine 14 MG PATCH.TD24 TD SCH (08:38)
[2020-09-20] MEDS: lisinopriL 10 MG TABLET PO SCH ×2 (08:46→19:45)
[2020-09-20] MEDS: *HR* Metformin 500 MG TABLET PO SCH ×2 (08:46→16:02)
[2020-09-20] MEDS: Apixaban 5 MG TABLET PO SCH ×2 (08:46→19:46)
[2020-09-20] MEDS: DilTIAZem CD (24hr) 120 MG CAP.ER.24H PO SCH (08:46)
[2020-09-20] MEDS: BuPROPion XL (24 HR) 150 MG TABLET PO SCH (08:46)
[2020-09-20] MEDS: Furosemide 40 MG TABLET PO SCH (08:46)
[2020-09-20] MEDS: traZODone 50 MG TABLET PO PRN (21:45)
[2020-09-21] MEDS: ceFAZolin 2,000 MG in 0.9 % Sodium Chloride 100 ML IVPB SCH ×4 (00:12→23:38)
[2020-09-21] MEDS: Insulin LISPRO 300 UNITS/3 ML VIAL SQ SCH ×4 (08:56→19:41)
[2020-09-21] MEDS: Apixaban 5 MG TABLET PO SCH ×2 (09:01→19:37)
[2020-09-21] MEDS: BuPROPion XL (24 HR) 150 MG TABLET PO SCH (09:01)
[2020-09-21] MEDS: *HR* Metformin 500 MG TABLET PO SCH ×2 (09:01→15:55)
[2020-09-21] MEDS: Furosemide 40 MG TABLET PO SCH (09:01)
[2020-09-21] MEDS: Nicotine 14 MG PATCH.TD24 TD SCH (09:02)
[2020-09-21] MEDS: DilTIAZem CD (24hr) 120 MG CAP.ER.24H PO SCH (09:02)
[2020-09-21] MEDS: lisinopriL 10 MG TABLET PO SCH ×2 (09:02→19:38)
[2020-09-21] MEDS: traZODone 50 MG TABLET PO PRN (21:49)
[2020-09-22] MEDS: ceFAZolin 2,000 MG in 0.9 % Sodium Chloride 100 ML IVPB SCH ×2 (08:24→16:22)
[2020-09-22] MEDS: BuPROPion XL (24 HR) 150 MG TABLET PO SCH (08:25)
[2020-09-22] MEDS: *HR* Metformin 500 MG TABLET PO SCH ×2 (08:25→16:22)
[2020-09-22] MEDS: lisinopriL 10 MG TABLET PO SCH ×2 (08:25→20:22)
[2020-09-22] MEDS: Furosemide 40 MG TABLET PO SCH (08:25)
[2020-09-22] MEDS: Apixaban 5 MG TABLET PO SCH ×2 (08:25→20:22)
[2020-09-22] MEDS: Nicotine 14 MG PATCH.TD24 TD SCH (08:25)
[2020-09-22] MEDS: DilTIAZem CD (24hr) 120 MG CAP.ER.24H PO SCH (08:25)
[2020-09-22] MEDS: Insulin LISPRO 300 UNITS/3 ML VIAL SQ SCH ×4 (08:26→20:24)
[2020-09-22] MEDS: traZODone 50 MG TABLET PO PRN (20:22)
[2020-09-23] MEDS: ceFAZolin 2,000 MG in 0.9 % Sodium Chloride 100 ML IVPB SCH ×3 (00:18→16:25)
[2020-09-23] MEDS: Insulin LISPRO 300 UNITS/3 ML VIAL SQ SCH ×4 (10:11→20:00)
[2020-09-23] MEDS: DilTIAZem CD (24hr) 120 MG CAP.ER.24H PO SCH (10:27)
[2020-09-23] MEDS: Nicotine 14 MG PATCH.TD24 TD SCH (10:27)
[2020-09-23] MEDS: *HR* Metformin 500 MG TABLET PO SCH ×2 (10:27→16:23)
[2020-09-23] MEDS: Apixaban 5 MG TABLET PO SCH ×2 (10:28→20:04)
[2020-09-23] MEDS: BuPROPion XL (24 HR) 150 MG TABLET PO SCH (10:28)
[2020-09-23] MEDS: Furosemide 40 MG TABLET PO SCH (10:28)
[2020-09-23] MEDS: lisinopriL 10 MG TABLET PO SCH ×2 (10:28→20:05)
[2020-09-23] MEDS: traZODone 50 MG TABLET PO PRN (20:04)
[2020-09-24] MEDS: Apixaban 5 MG TABLET PO SCH ×2 (08:10→20:18)
[2020-09-24] MEDS: Furosemide 40 MG TABLET PO SCH (08:10)
[2020-09-24] MEDS: Nicotine 14 MG PATCH.TD24 TD SCH (08:10)
[2020-09-24] MEDS: Insulin LISPRO 300 UNITS/3 ML VIAL SQ SCH ×4 (08:11→20:25)
[2020-09-24] MEDS: *HR* Metformin 500 MG TABLET PO SCH ×2 (08:11→16:21)
[2020-09-24] MEDS: BuPROPion XL (24 HR) 150 MG TABLET PO SCH (08:11)
[2020-09-24] MEDS: lisinopriL 10 MG TABLET PO SCH ×2 (08:11→20:18)
[2020-09-24] MEDS: DilTIAZem CD (24hr) 120 MG CAP.ER.24H PO SCH (08:13)
[2020-09-24] MEDS: haloperidoL 1 MG TABLET PO PRN (13:45)
[2020-09-24] MEDS: traZODone 50 MG TABLET PO PRN (20:18)
[2020-09-25] MEDS: Insulin LISPRO 300 UNITS/3 ML VIAL SQ SCH ×4 (08:03→20:23)
[2020-09-25] MEDS: lisinopriL 10 MG TABLET PO SCH ×2 (08:05→20:16)
[2020-09-25] MEDS: BuPROPion XL (24 HR) 150 MG TABLET PO SCH (08:05)
[2020-09-25] MEDS: Furosemide 40 MG TABLET PO SCH (08:05)
[2020-09-25] MEDS: Apixaban 5 MG TABLET PO SCH ×2 (08:05→20:16)
[2020-09-25] MEDS: *HR* Metformin 500 MG TABLET PO SCH ×2 (08:05→16:29)
[2020-09-25] MEDS: DilTIAZem CD (24hr) 120 MG CAP.ER.24H PO SCH (08:05)
[2020-09-25] MEDS: Nicotine 14 MG PATCH.TD24 TD SCH (08:06)
[2020-09-25] MEDS: traZODone 50 MG TABLET PO PRN (20:23)
[2020-09-26] MEDS: Furosemide 40 MG TABLET PO SCH (08:05)
[2020-09-26] MEDS: *HR* Metformin 500 MG TABLET PO SCH ×2 (08:05→17:24)
[2020-09-26] MEDS: lisinopriL 10 MG TABLET PO SCH ×2 (08:06→19:49)
[2020-09-26] MEDS: Nicotine 14 MG PATCH.TD24 TD SCH (08:06)
[2020-09-26] MEDS: DilTIAZem CD (24hr) 120 MG CAP.ER.24H PO SCH (08:06)
[2020-09-26] MEDS: Insulin LISPRO 300 UNITS/3 ML VIAL SQ SCH ×4 (08:06→19:49)
[2020-09-26] MEDS: Apixaban 5 MG TABLET PO SCH ×2 (08:06→19:49)
[2020-09-26] MEDS: BuPROPion XL (24 HR) 150 MG TABLET PO SCH (08:08)
[2020-09-26 08:25] LABS: Hematocrit 31.7 % (37.5-50.1); Hemoglobin 9.7 g/dL (12.9-16.9); Mean Corpuscular HGB Conc 30.6 g/dL (31.6-35.5); Mean Corpuscular Hemoglobin 22.1 pg (28.0-33.3); Mean Corpuscular Volume 72.2 fL (83.0-100.0); Mean Platelet Volume 9.2 fL (9.4-12.4); Platelet Count 573 K/mcL (140-400); Red Blood Count 4.39 M/mcL (4.19-5.50); Red Cell Distribution Width 19.9 % (11.5-14.5); White Blood Count 8.5 K/mcL (4.3-11.1)
[2020-09-26 08:38] LABS: BUN/Creatinine Ratio 17 (6-26); Blood Urea Nitrogen 19 mg/dL (8-23); Calcium 8.7 mg/dL (8.6-10.3); Carbon Dioxide 28 mEq/L (23-29); Chloride 99 mEq/L (98-107); Glucose 113 mg/dL (70-105); Osmolality,Calculated 283 (280-300); Potassium 3.8 mEq/L (3.5-5.1); Sodium 135 mEq/L (136-145); eGFR For African Americans > 60 (> 60); eGFR For Non-African Americans > 60 (> 60)
[2020-09-27] MEDS: BuPROPion XL (24 HR) 150 MG TABLET PO SCH (07:38)
[2020-09-27] MEDS: DilTIAZem CD (24hr) 120 MG CAP.ER.24H PO SCH (07:39)
[2020-09-27] MEDS: Nicotine 14 MG PATCH.TD24 TD SCH (07:39)
[2020-09-27] MEDS: Apixaban 5 MG TABLET PO SCH ×2 (07:39→20:10)
[2020-09-27] MEDS: lisinopriL 10 MG TABLET PO SCH ×2 (07:39→20:10)
[2020-09-27] MEDS: Furosemide 40 MG TABLET PO SCH (07:39)
[2020-09-27] MEDS: *HR* Metformin 500 MG TABLET PO SCH ×2 (07:39→17:05)
[2020-09-27] MEDS: Insulin LISPRO 300 UNITS/3 ML VIAL SQ SCH ×4 (07:40→20:11)
[2020-09-27] MEDS ORDERED: Acetaminophen 325 MG TABLET PO PRN (09:03)
[2020-09-28 07:03] VITALS: BP 132/70
[2020-09-28] MEDS: Insulin LISPRO 300 UNITS/3 ML VIAL SQ SCH ×2 (07:14→12:19)
[2020-09-28] MEDS: Nicotine 14 MG PATCH.TD24 TD SCH (08:14)
[2020-09-28] MEDS: BuPROPion XL (24 HR) 150 MG TABLET PO SCH (08:15)
[2020-09-28] MEDS: DilTIAZem CD (24hr) 120 MG CAP.ER.24H PO SCH (08:15)
[2020-09-28] MEDS: lisinopriL 10 MG TABLET PO SCH (08:16)
[2020-09-28] MEDS: Furosemide 40 MG TABLET PO SCH (08:16)
[2020-09-28] MEDS: *HR* Metformin 500 MG TABLET PO SCH (08:16)
[2020-09-28] MEDS: Apixaban 5 MG TABLET PO SCH (08:16)
[2020-09-28 11:22] LABS: Basophils % 0.2 %; Eosinophils % 0.2 %; Hematocrit 32.6 % (37.5-50.1); Hemoglobin 9.8 g/dL (12.9-16.9); Immature Granulocytes % 0.2 % (0-4); Lymphocytes # 0.8 K/mcL (0.6-4.6); Lymphocytes % 8.3 %; Mean Corpuscular HGB Conc 30.1 g/dL (31.6-35.5); Mean Corpuscular Hemoglobin 21.8 pg (28.0-33.3); Mean Corpuscular Volume 72.4 fL (83.0-100.0); Mean Platelet Volume 9.6 fL (9.4-12.4); Monocytes # 0.9 K/mcL (0.0-1.3); Monocytes % 9.4 %; Neutrophils # 7.5 K/mcL (1.6-8.9); Platelet Count 496 K/mcL (140-400); Red Cell Distribution Width 19.4 % (11.5-14.5); Segmented Neutrophils % 81.7 %; White Blood Count 9.2 K/mcL (4.3-11.1)
[2020-09-28 11:35] LABS: BUN/Creatinine Ratio 19 (6-26); Blood Urea Nitrogen 22 mg/dL (8-23); Calcium 8.6 mg/dL (8.6-10.3); Carbon Dioxide 26 mEq/L (23-29); Chloride 100 mEq/L (98-107); Glucose 167 mg/dL (70-105); Osmolality,Calculated 289 (280-300); Potassium 3.6 mEq/L (3.5-5.1); Sodium 136 mEq/L (136-145); eGFR For African Americans > 60 (> 60); eGFR For Non-African Americans > 60 (> 60)
== END 2020-09-28 16:30 | disposition critical access hospital (66) | DRG 559 ==
LOC: INPPIK 13:44
PROVIDERS: ADMIT Family Medicine; ATTEND Family Medicine

== ENCOUNTER 2022-02-26 17:32 | Inpatient (IN) ==
[2022-02-26] MEDS ORDERED: Ipratropium/Albuterol Neb 3 ML IH PRN (19:55)
[2022-02-26] MEDS ORDERED: Nitroglycerin 0.4 MG TAB.SUBL SL PRN (19:55)
[2022-02-26] MEDS: Apixaban 5 MG TABLET PO SCH (23:07)
[2022-02-26] MEDS: lisinopriL 10 MG TABLET PO SCH (23:07)
[2022-02-26] MEDS: levETIRAcetam 250 MG TABLET PO SCH (23:07)
[2022-02-26] MEDS: Furosemide 40 MG TABLET PO SCH (23:08)
[2022-02-27 06:44] LABS: Basophils % 0.3 %; Eosinophils # 0.2 K/mcL (0.0-0.6); Eosinophils % 1.6 %; Hematocrit 40.2 % (37.5-50.1); Immature Granulocytes % 1.5 % (0-4); Lymphocytes # 3.3 K/mcL (0.6-4.6); Lymphocytes % 23.4 %; Mean Corpuscular HGB Conc 32.3 g/dL (31.6-35.5); Mean Corpuscular Volume 86.5 fL (83.0-100.0); Mean Platelet Volume 9.3 fL (9.4-12.4); Monocytes # 1.1 K/mcL (0.0-1.3); Monocytes % 7.9 %; Neutrophils # 9.1 K/mcL (1.6-8.9); Platelet Count 309 K/mcL (140-400); Red Blood Count 4.65 M/mcL (4.19-5.50); Red Cell Distribution Width 13.3 % (11.5-14.5); Segmented Neutrophils % 65.3 %
[2022-02-27 07:05] LABS: BUN/Creatinine Ratio 17 (6-26); Blood Urea Nitrogen 22 mg/dL (8-23); Calcium 8.2 mg/dL (8.6-10.3); Carbon Dioxide 34 mEq/L (23-29); Chloride 102 mEq/L (98-107); Glucose 85 mg/dL (70-105); Osmolality,Calculated 293 (280-300); Potassium 3.9 mEq/L (3.5-5.1); Sodium 140 mEq/L (136-145); eGFR For African Americans > 60 (> 60); eGFR For Non-African Americans 55 (> 60)
[2022-02-27] MEDS ORDERED: Dextrose 4 GM Chewable Tablets PO PRN ×2 (07:56)
[2022-02-27] MEDS ORDERED: *HR* Dextrose 50 % in Water (Syg) 50 ML SYRINGE IVP PRN (07:56)
[2022-02-27] MEDS ORDERED: D5% in Water 1,000 ML IVC PRN (07:56)
[2022-02-27] MEDS ORDERED: amLODIPine 5 MG TABLET PO SCH (09:00)
[2022-02-27] MEDS ORDERED: DilTIAZem CD (24hr) 120 MG CAP.ER.24H PO SCH (09:00)
[2022-02-27] MEDS: Furosemide 40 MG TABLET PO SCH ×2 (09:29→17:36)
[2022-02-27] MEDS: *HR* Metformin 500 MG TABLET PO SCH ×2 (09:29→17:36)
[2022-02-27] MEDS: levETIRAcetam 250 MG TABLET PO SCH ×2 (09:30→21:43)
[2022-02-27] MEDS: lisinopriL 10 MG TABLET PO SCH ×2 (09:30→21:44)
[2022-02-27] MEDS: Multivit/Ca/Min/Fe/FA 1 TAB TABLET PO SCH (09:31)
[2022-02-27] MEDS: Aspirin 81 MG TAB.CHEW PO SCH (09:31)
[2022-02-27] MEDS: Apixaban 5 MG TABLET PO SCH ×2 (09:31→21:43)
[2022-02-27] MEDS: Isosorbide MONOnitrate (24 HR) 30 MG TAB.ER.24H PO SCH (09:31)
[2022-02-27] MEDS: Insulin LISPRO 300 UNITS/3 ML VIAL SUBQ SCH ×3 (11:59→21:44)
[2022-02-27] MEDS: Nystatin POWDER 30 GM BOTTLE TP SCH ×2 (15:21→21:51)
[2022-02-28] MEDS: Insulin LISPRO 300 UNITS/3 ML VIAL SUBQ SCH ×4 (07:43→22:15)
[2022-02-28] MEDS: Apixaban 5 MG TABLET PO SCH ×2 (08:55→22:14)
[2022-02-28] MEDS: levETIRAcetam 250 MG TABLET PO SCH ×2 (08:55→22:14)
[2022-02-28] MEDS: Multivit/Ca/Min/Fe/FA 1 TAB TABLET PO SCH (08:55)
[2022-02-28] MEDS: *HR* Metformin 500 MG TABLET PO SCH ×2 (08:56→17:17)
[2022-02-28] MEDS: Aspirin 81 MG TAB.CHEW PO SCH (08:56)
[2022-02-28] MEDS: lisinopriL 10 MG TABLET PO SCH ×2 (08:56→22:14)
[2022-02-28] MEDS: Isosorbide MONOnitrate (24 HR) 30 MG TAB.ER.24H PO SCH (08:56)
[2022-02-28] MEDS: Furosemide 40 MG TABLET PO SCH ×2 (08:56→17:17)
[2022-02-28] MEDS: Nystatin POWDER 30 GM BOTTLE TP SCH ×3 (08:57→22:16)
[2022-03-01] MEDS: Isosorbide MONOnitrate (24 HR) 30 MG TAB.ER.24H PO SCH (09:03)
[2022-03-01] MEDS: Aspirin 81 MG TAB.CHEW PO SCH (09:04)
[2022-03-01] MEDS: levETIRAcetam 250 MG TABLET PO SCH ×2 (09:04→20:33)
[2022-03-01] MEDS: Nystatin POWDER 30 GM BOTTLE TP SCH ×3 (09:04→20:33)
[2022-03-01] MEDS: Multivit/Ca/Min/Fe/FA 1 TAB TABLET PO SCH (09:04)
[2022-03-01] MEDS: Apixaban 5 MG TABLET PO SCH ×2 (09:04→20:33)
[2022-03-01] MEDS: Insulin LISPRO 300 UNITS/3 ML VIAL SUBQ SCH ×4 (09:04→20:33)
[2022-03-01] MEDS: *HR* Metformin 500 MG TABLET PO SCH ×2 (09:04→16:38)
[2022-03-01] MEDS: lisinopriL 10 MG TABLET PO SCH ×2 (09:04→20:32)
[2022-03-01] MEDS: Furosemide 40 MG TABLET PO SCH ×2 (09:04→16:38)
[2022-03-02] MEDS: Insulin LISPRO 300 UNITS/3 ML VIAL SUBQ SCH ×4 (08:00→21:35)
[2022-03-02] MEDS: Furosemide 40 MG TABLET PO SCH ×2 (08:06→17:03)
[2022-03-02] MEDS: Multivit/Ca/Min/Fe/FA 1 TAB TABLET PO SCH (08:06)
[2022-03-02] MEDS: *HR* Metformin 500 MG TABLET PO SCH ×2 (08:06→17:03)
[2022-03-02] MEDS: levETIRAcetam 250 MG TABLET PO SCH ×2 (08:06→21:34)
[2022-03-02] MEDS: Aspirin 81 MG TAB.CHEW PO SCH (08:07)
[2022-03-02] MEDS: Isosorbide MONOnitrate (24 HR) 30 MG TAB.ER.24H PO SCH (08:07)
[2022-03-02] MEDS: Apixaban 5 MG TABLET PO SCH ×2 (08:07→21:35)
[2022-03-02] MEDS: lisinopriL 10 MG TABLET PO SCH ×2 (08:07→21:35)
[2022-03-02] MEDS: Nystatin POWDER 30 GM BOTTLE TP SCH ×3 (08:11→21:35)
[2022-03-03 08:23] LABS: Basophils % 0.1 %; Eosinophils # 0.3 K/mcL (0.0-0.6); Eosinophils % 2.7 %; Hematocrit 40.6 % (37.5-50.1); Hemoglobin 13.2 g/dL (12.9-16.9); Immature Granulocytes % 0.6 % (0-4); Lymphocytes # 2.3 K/mcL (0.6-4.6); Lymphocytes % 20.3 %; Mean Corpuscular HGB Conc 32.5 g/dL (31.6-35.5); Mean Corpuscular Volume 86.2 fL (83.0-100.0); Monocytes # 1.2 K/mcL (0.0-1.3); Monocytes % 10.5 %; Neutrophils # 7.4 K/mcL (1.6-8.9); Platelet Count 297 K/mcL (140-400); Red Blood Count 4.71 M/mcL (4.19-5.50); Red Cell Distribution Width 13.5 % (11.5-14.5); Segmented Neutrophils % 65.8 %; White Blood Count 11.3 K/mcL (4.3-11.1)
[2022-03-03 08:37] LABS: Calcium 8.8 mg/dL (8.6-10.3); Potassium 3.9 mEq/L (3.5-5.1)
[2022-03-03] MEDS: Insulin LISPRO 300 UNITS/3 ML VIAL SUBQ SCH ×3 (08:50→16:35)
[2022-03-03] MEDS: levETIRAcetam 250 MG TABLET PO SCH ×2 (09:20→20:48)
[2022-03-03] MEDS: Apixaban 5 MG TABLET PO SCH ×2 (09:21→20:48)
[2022-03-03] MEDS: Aspirin 81 MG TAB.CHEW PO SCH (09:21)
[2022-03-03] MEDS: Isosorbide MONOnitrate (24 HR) 30 MG TAB.ER.24H PO SCH (09:21)
[2022-03-03] MEDS: lisinopriL 10 MG TABLET PO SCH ×2 (09:21→20:48)
[2022-03-03] MEDS: Nystatin POWDER 30 GM BOTTLE TP SCH ×3 (09:21→20:49)
[2022-03-03] MEDS: Multivit/Ca/Min/Fe/FA 1 TAB TABLET PO SCH (09:21)
[2022-03-03] MEDS: *HR* Metformin 500 MG TABLET PO SCH ×2 (09:21→17:20)
[2022-03-03] MEDS: Furosemide 40 MG TABLET PO SCH (09:21)
[2022-03-03] MEDS: Budesonide/Formoterol 160/4.5 1 PUFF INH IH SCH (22:08)
[2022-03-04] MEDS: Budesonide/Formoterol 160/4.5 1 PUFF INH IH SCH ×2 (08:51→22:03)
[2022-03-04] MEDS: Multivit/Ca/Min/Fe/FA 1 TAB TABLET PO SCH (08:57)
[2022-03-04] MEDS: Insulin LISPRO 300 UNITS/3 ML VIAL SUBQ SCH ×3 (08:57→16:10)
[2022-03-04] MEDS: levETIRAcetam 250 MG TABLET PO SCH ×2 (08:57→20:25)
[2022-03-04] MEDS: Aspirin 81 MG TAB.CHEW PO SCH (08:57)
[2022-03-04] MEDS: Isosorbide MONOnitrate (24 HR) 30 MG TAB.ER.24H PO SCH (08:58)
[2022-03-04] MEDS: *HR* Metformin 500 MG TABLET PO SCH ×2 (08:58→18:05)
[2022-03-04] MEDS: Furosemide 40 MG TABLET PO SCH (08:58)
[2022-03-04] MEDS: lisinopriL 10 MG TABLET PO SCH ×2 (08:58→20:25)
[2022-03-04] MEDS: Apixaban 5 MG TABLET PO SCH ×2 (08:58→20:25)
[2022-03-04] MEDS: Nystatin POWDER 30 GM BOTTLE TP SCH ×3 (08:59→20:42)
[2022-03-05] MEDS: Insulin LISPRO 300 UNITS/3 ML VIAL SUBQ SCH ×3 (07:29→17:55)
[2022-03-05 07:47] LABS: BUN/Creatinine Ratio 15 (6-26); Blood Urea Nitrogen 20 mg/dL (8-23); Calcium 8.6 mg/dL (8.6-10.3); Carbon Dioxide 32 mEq/L (23-29); Chloride 102 mEq/L (98-107); Glucose 87 mg/dL (70-105); Osmolality,Calculated 288 (280-300); Potassium 4.4 mEq/L (3.5-5.1); Sodium 138 mEq/L (136-145); eGFR For African Americans > 60 (> 60); eGFR For Non-African Americans 52 (> 60)
[2022-03-05] MEDS: *HR* Metformin 500 MG TABLET PO SCH ×2 (08:35→18:18)
[2022-03-05] MEDS: Furosemide 40 MG TABLET PO SCH ×2 (08:35→18:18)
[2022-03-05] MEDS: Aspirin 81 MG TAB.CHEW PO SCH (08:35)
[2022-03-05] MEDS: Isosorbide MONOnitrate (24 HR) 30 MG TAB.ER.24H PO SCH (08:36)
[2022-03-05] MEDS: Apixaban 5 MG TABLET PO SCH ×2 (08:36→20:41)
[2022-03-05] MEDS: lisinopriL 10 MG TABLET PO SCH ×2 (08:36→20:41)
[2022-03-05] MEDS: levETIRAcetam 250 MG TABLET PO SCH ×2 (08:36→20:41)
[2022-03-05] MEDS: Nystatin POWDER 30 GM BOTTLE TP SCH ×3 (08:36→20:46)
[2022-03-05] MEDS: Multivit/Ca/Min/Fe/FA 1 TAB TABLET PO SCH (08:36)
[2022-03-05] MEDS: Budesonide/Formoterol 160/4.5 1 PUFF INH IH SCH ×2 (09:37→22:05)
[2022-03-06] MEDS: Insulin LISPRO 300 UNITS/3 ML VIAL SUBQ SCH ×3 (07:38→18:02)
[2022-03-06] MEDS: Multivit/Ca/Min/Fe/FA 1 TAB TABLET PO SCH (08:13)
[2022-03-06] MEDS: Aspirin 81 MG TAB.CHEW PO SCH (08:14)
[2022-03-06] MEDS: Isosorbide MONOnitrate (24 HR) 30 MG TAB.ER.24H PO SCH (08:14)
[2022-03-06] MEDS: lisinopriL 10 MG TABLET PO SCH ×2 (08:14→21:34)
[2022-03-06] MEDS: levETIRAcetam 250 MG TABLET PO SCH ×2 (08:14→21:34)
[2022-03-06] MEDS: Nystatin POWDER 30 GM BOTTLE TP SCH ×3 (08:15→21:35)
[2022-03-06] MEDS: *HR* Metformin 500 MG TABLET PO SCH ×2 (08:15→16:54)
[2022-03-06] MEDS: Furosemide 40 MG TABLET PO SCH ×2 (08:15→16:53)
[2022-03-06] MEDS: Apixaban 5 MG TABLET PO SCH ×2 (08:15→21:33)
[2022-03-06] MEDS: Budesonide/Formoterol 160/4.5 1 PUFF INH IH SCH ×2 (09:38→22:16)
[2022-03-07] MEDS: Budesonide/Formoterol 160/4.5 1 PUFF INH IH SCH ×2 (09:33→21:06)
[2022-03-07] MEDS: Insulin LISPRO 300 UNITS/3 ML VIAL SUBQ SCH ×3 (10:33→17:33)
[2022-03-07] MEDS: Multivit/Ca/Min/Fe/FA 1 TAB TABLET PO SCH (10:39)
[2022-03-07] MEDS: Apixaban 5 MG TABLET PO SCH ×2 (10:39→20:07)
[2022-03-07] MEDS: Aspirin 81 MG TAB.CHEW PO SCH (10:39)
[2022-03-07] MEDS: *HR* Metformin 500 MG TABLET PO SCH ×2 (10:40→18:32)
[2022-03-07] MEDS: levETIRAcetam 250 MG TABLET PO SCH ×2 (10:40→20:07)
[2022-03-07] MEDS: Isosorbide MONOnitrate (24 HR) 30 MG TAB.ER.24H PO SCH (10:40)
[2022-03-07] MEDS: lisinopriL 10 MG TABLET PO SCH ×2 (10:41→20:08)
[2022-03-07] MEDS: Furosemide 40 MG TABLET PO SCH ×2 (10:41→18:32)
[2022-03-07] MEDS: Nystatin POWDER 30 GM BOTTLE TP SCH ×3 (10:48→20:08)
[2022-03-08] MEDS: Budesonide/Formoterol 160/4.5 1 PUFF INH IH SCH ×2 (09:41→22:13)
[2022-03-08] MEDS: lisinopriL 10 MG TABLET PO SCH ×2 (10:38→20:48)
[2022-03-08] MEDS: Insulin LISPRO 300 UNITS/3 ML VIAL SUBQ SCH ×3 (10:38→16:16)
[2022-03-08] MEDS: Furosemide 40 MG TABLET PO SCH ×2 (10:39→16:19)
[2022-03-08] MEDS: Isosorbide MONOnitrate (24 HR) 30 MG TAB.ER.24H PO SCH (10:39)
[2022-03-08] MEDS: Nystatin POWDER 30 GM BOTTLE TP SCH ×3 (10:39→20:49)
[2022-03-08] MEDS: levETIRAcetam 250 MG TABLET PO SCH ×2 (10:39→20:48)
[2022-03-08] MEDS: *HR* Metformin 500 MG TABLET PO SCH ×2 (10:39→16:19)
[2022-03-08] MEDS: Apixaban 5 MG TABLET PO SCH ×2 (10:39→20:49)
[2022-03-08] MEDS: Aspirin 81 MG TAB.CHEW PO SCH (10:39)
[2022-03-08] MEDS: Multivit/Ca/Min/Fe/FA 1 TAB TABLET PO SCH (10:39)
[2022-03-09] MEDS: Insulin LISPRO 300 UNITS/3 ML VIAL SUBQ SCH ×3 (08:12→16:41)
[2022-03-09] MEDS: lisinopriL 10 MG TABLET PO SCH ×2 (09:19→20:27)
[2022-03-09] MEDS: Furosemide 40 MG TABLET PO SCH ×2 (09:20→16:05)
[2022-03-09] MEDS: Apixaban 5 MG TABLET PO SCH ×2 (09:20→20:27)
[2022-03-09] MEDS: Aspirin 81 MG TAB.CHEW PO SCH (09:20)
[2022-03-09] MEDS: Isosorbide MONOnitrate (24 HR) 30 MG TAB.ER.24H PO SCH (09:20)
[2022-03-09] MEDS: levETIRAcetam 250 MG TABLET PO SCH ×2 (09:20→20:27)
[2022-03-09] MEDS: Multivit/Ca/Min/Fe/FA 1 TAB TABLET PO SCH (09:20)
[2022-03-09] MEDS: *HR* Metformin 500 MG TABLET PO SCH ×2 (09:29→16:05)
[2022-03-09] MEDS: Nystatin POWDER 30 GM BOTTLE TP SCH ×3 (09:29→20:27)
[2022-03-09] MEDS: Budesonide/Formoterol 160/4.5 1 PUFF INH IH SCH ×2 (10:02→21:32)
[2022-03-10 08:16] VITALS: BP 124/58; PULSE 48; TEMP 97.6
[2022-03-10] MEDS: lisinopriL 10 MG TABLET PO SCH (09:46)
[2022-03-10] MEDS: Furosemide 40 MG TABLET PO SCH (09:46)
[2022-03-10] MEDS: Budesonide/Formoterol 160/4.5 1 PUFF INH IH SCH (09:46)
[2022-03-10] MEDS: levETIRAcetam 250 MG TABLET PO SCH (09:47)
[2022-03-10] MEDS: Aspirin 81 MG TAB.CHEW PO SCH (09:47)
[2022-03-10] MEDS: Isosorbide MONOnitrate (24 HR) 30 MG TAB.ER.24H PO SCH (09:47)
[2022-03-10] MEDS: *HR* Metformin 500 MG TABLET PO SCH (09:48)
[2022-03-10] MEDS: Multivit/Ca/Min/Fe/FA 1 TAB TABLET PO SCH (09:48)
[2022-03-10] MEDS: Apixaban 5 MG TABLET PO SCH (09:48)
[2022-03-10] MEDS: Insulin LISPRO 300 UNITS/3 ML VIAL SUBQ SCH ×2 (09:48→13:04)
[2022-03-10] MEDS: Nystatin POWDER 30 GM BOTTLE TP SCH ×2 (09:49→14:14)
[2022-03-10 09:50] VITALS: RESP 18; O2SAT 92
== END 2022-03-10 15:47 | disposition home or self-care (01) | DRG 871 ==
LOC: INPPIK 19:39
PROVIDERS: ADMIT Family Medicine; ATTEND Family Medicine